=== PATIENT | female | born 1985 | race Two or more races ===

== ENCOUNTER 2016-05-25 22:25 | Emergency (ER) | payer OTHER ==
[2016-05-25 23:04] VITALS: O2SAT 96
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
[2016-05-26 01:21] VITALS: BP 119/77; PULSE 87; RESP 16; TEMP 97.9
== END 2016-05-26 01:23 | disposition home or self-care (01) ==
DX: S89.91XA Unspecified injury of right lower leg, initial encounter (principal); V49.40XA Driver injured in collision with unspecified motor vehicles in traffic accident, initial encounter; Y92.410 Unspecified street and highway as the place of occurrence of the external cause; Y99.8 Other external cause status; Y93.89 Activity, other specified

== ENCOUNTER → 2016-11-01 | Outpatient (CLI) | payer BC | LOC: FIMAGING 12:27 | PROVIDERS: ATTEND Midwife | DX: Z34.02 Encounter for supervision of normal first pregnancy, second trimester (principal); Z3A.23 23 weeks gestation of pregnancy ==

== ENCOUNTER → 2017-01-03 | Outpatient (CLI) | payer BC, MEDICAID | LOC: FIMAGING 14:41 | PROVIDERS: ATTEND Midwife | DX: Z34.83 Encounter for supervision of other normal pregnancy, third trimester (principal); Z3A.32 32 weeks gestation of pregnancy ==

== ENCOUNTER → 2018-09-20 | Outpatient (CLI) | payer OTHER | LOC: FIMAGING 11:29 | PROVIDERS: ATTEND Family Medicine | DX: N64.4 Mastodynia (principal) ==